=== PATIENT | male | born 1945 | race Caucasian/White ===

== ENCOUNTER → 2024-11-08 | Outpatient (CLI) | payer MEDICARE ==
--- NOTE | 2024-11-09 08:33 | MR ---
EXAMINATION TYPE: MR forearm RT wo/w con DATE OF EXAM: 11/08/2024 8:01 PM COMPARISON: None. CLINICAL INDICATION: Male, 79 years old with history of R22.31; PHH, RT Wrist swelling and lump x6-7 weeks - hx of cellulitis in his wrist and hx of multiple myeloma TECHNIQUE: MR forearm RT wo/w con; Multiplanar, multisequence technique was utilized in order to study. Contrast: 7.5ml mL Gadobutrol (none if empty) FINDINGS: Limited evaluation due to patient body habitus. There is streaky edema/postcontrast enhancement throughout the myofascial planes most pronounced towa rds the wrist and hand. No organizing fluid collections visualized. No additional abnormal postcontra st enhancement. No abnormal enhancement within the bone marrow. No abnormal bone marrow signal. Atherosclerosis of the arterial vasculature. Mild degeneration change s throughout the joints of the wrist with joint space narrowing osteophytes and subchondral cystic ch radha and a few of the carpals. IMPRESSION: Streaky edema throughout the myofascial planes of the forearm no organizing fluid collections suggest abscess. Correlate for cellulitis. [facility], , 11/09/2024 8:30 AM
== END | disposition home or self-care (01) ==
LOC: RADMRIMAIN 18:15
PROVIDERS: ATTEND Orthopaedic Surgery
DX: R22.31 Localized swelling, mass and lump, right upper limb (principal); C90.00 Multiple myeloma not having achieved remission; L03.113 Cellulitis of right upper limb
CPT/HCPCS: 73220; A9585